=== PATIENT | male | born 1975 | race Caucasian/White ===

== ENCOUNTER → 2017-01-15 | Outpatient (CLI) | payer OTHER ==
[~2017-01-15] MED LIST: ASPI325T17 PO; DIAZ5TAB PO; DOCU-131 PO; LOSA25TA5 PO; OXYC-302 PO; OXYC-307 PO; OXYC10TA47 PO; TRAM50TA2 PO; VARE1TAB21 PO
== END | disposition home or self-care (01) ==
LOC: CFH 09:09
PROVIDERS: ATTEND Orthopaedic Surgery
DX: M48.06 Spinal stenosis, lumbar region (principal); M70.62 Trochanteric bursitis, left hip; Z96.642 Presence of left artificial hip joint; M51.27 Other intervertebral disc displacement, lumbosacral region; M51.46 Schmorl's nodes, lumbar region
CPT/HCPCS: 72148

== ENCOUNTER → 2017-05-06 | Outpatient (CLI) | payer OTHER ==
[2017-05-06 09:37] LABS: BASOPHILS # (AUTO) 0.16 x10^3/uL (0-0.1); BASOPHILS % (AUTO) 2 % (0-1); EOSINOPHILS # (AUTO) 0.29 x10^3/uL (0-0.4); EOSINOPHILS % (AUTO) 4 % (1-7); LYMPHOCYTES # (AUTO) 2.33 x10^3/uL (1-3.4); LYMPHOCYTES % (AUTO) 30 % (22-44); MD NO; MEAN CORPUSCULAR HEMOGLOBIN 29.7 pg (27.5-34.5); MEAN CORPUSCULAR HGB CONC 33.9 g/dL (33.2-36.2); MEAN CORPUSCULAR VOLUME 87.4 fL (81-97); MEAN PLATELET VOLUME 8.7 fL (7.4-10.4); MONOCYTES # (AUTO) 0.42 x10^3/uL (0.2-0.8); MONOCYTES % (AUTO) 5 % (2-9); NEUTROPHILS # (AUTO) 4.55 x10^3/uL (1.8-6.8); NEUTROPHILS % (AUTO) 59 % (42-75); PLATELET COUNT 185 x10^3/uL (130-400); RED BLOOD COUNT 5.15 x10^6/uL (4.38-5.82); RED CELL DISTRIBUTION WIDTH 13.9 % (9.4-14.8)
[2017-05-06 09:52] LABS: ANION GAP 5 mmol/L (5-15); CALCIUM 8.7 mg/dL (8.5-10.1); CHLORIDE 106 mmol/L (98-107)
[2017-05-06 10:05] LABS: ALANINE AMINOTRANSFERASE 23 U/L (12-78); ALKALINE PHOSPHATASE 102 U/L (45-117); BILIRUBIN,TOTAL 0.3 mg/dL (0.2-1.0); CHOL/HDL RATIO 4.1; CHOLESTEROL, TOTAL 145 mg/dL (140-239); CREATININE 0.96 mg/dL (0.7-1.3); HDL CHOL % 24 % (26-37); HDL CHOLESTEROL (DIRECT) 35 mg/dL (40-60); LDL CHOLESTEROL,CALCULATED 46 mg/dL (54-169); LDL/HDL RATIO 1.3 (0.5-3.0); PSA OPT SCREEN 0.24 ng/mL (0.00-4.00); TOTAL PROTEIN 7.5 g/dL (6.4-8.2); TRIGLYCERIDES 318 mg/dL (50-200); VLDL CHOLESTEROL 64 mg/dL (0-25)
== END | disposition home or self-care (01) ==
LOC: LAB 09:21
PROVIDERS: ATTEND Physician Assistant
DX: Z13.220 Encounter for screening for lipoid disorders (principal); Z12.11 Encounter for screening for malignant neoplasm of colon; M87.052 Idiopathic aseptic necrosis of left femur; M25.552 Pain in left hip; F17.200 Nicotine dependence, unspecified, uncomplicated; R03.0 Elevated blood-pressure reading, without diagnosis of hypertension; E78.5 Hyperlipidemia, unspecified; L98.9 Disorder of the skin and subcutaneous tissue, unspecified; N52.9 Male erectile dysfunction, unspecified; M54.5 Low back pain; Z12.5 Encounter for screening for malignant neoplasm of prostate
CPT/HCPCS: 36415; 80053; 80061; 82306; 84153; 84402; 84403; 84443; 85025; G0103

== ENCOUNTER 2017-06-01 16:28 | Day surgery (SDC) | payer OTHER ==
[~2017-06-01] VITALS: Ht 182.9 cm; Wt 102.1 kg
[2017-06-01 16:45] VITALS: BP 144/95
[2017-06-01] MEDS ORDERED: SODIUM CHLORIDE 0.9% 1,000 ML IV ONE (17:04)
[2017-06-01 17:25] LABS: MICROSCOPIC NOT IND
[2017-06-01] MEDS ORDERED: ONDANSETRON 2MG/ML, 2ML IVPush ONE (17:30)
[2017-06-01] MEDS ORDERED: SODIUM CHLORIDE FLUSH 10ML SYR IVF ONE (17:30)
[2017-06-01] MEDS ORDERED: KETOROLAC 30 MG/1 ML IVPush ONE (17:30)
[2017-06-01] MEDS ORDERED: MORPHINE SULFATE 4 MG/ML, 1ML IVPush PRN ×2 (17:30→22:30)
[2017-06-01 17:33] LABS: CULTURE INDICATED? NO
[2017-06-01 18:11] LABS: BASOPHILS # (AUTO) 0.08 x10^3/uL (0-0.1); BASOPHILS % (AUTO) 1 % (0-1); EOSINOPHILS % (AUTO) 1 % (1-7); LYMPHOCYTES # (AUTO) 2.14 x10^3/uL (1-3.4); LYMPHOCYTES % (AUTO) 14 % (22-44); MD NO; MEAN CORPUSCULAR HEMOGLOBIN 29.4 pg (27.5-34.5); MEAN CORPUSCULAR HGB CONC 32.9 g/dL (33.2-36.2); MEAN CORPUSCULAR VOLUME 89.4 fL (81-97); MEAN PLATELET VOLUME 9.2 fL (7.4-10.4); MONOCYTES # (AUTO) 0.83 x10^3/uL (0.2-0.8); MONOCYTES % (AUTO) 5 % (2-9); NEUTROPHILS # (AUTO) 12.22 x10^3/uL (1.8-6.8); NEUTROPHILS % (AUTO) 80 % (42-75); PLATELET COUNT 214 x10^3/uL (130-400); RED BLOOD COUNT 5.34 x10^6/uL (4.38-5.82); RED CELL DISTRIBUTION WIDTH 13.9 % (9.4-14.8)
[2017-06-01 18:23] LABS: ALANINE AMINOTRANSFERASE 34 U/L (12-78); ALBUMIN 4.2 g/dL (3.4-5.0); ANION GAP 5 mmol/L (5-15); CALCIUM 9.1 mg/dL (8.5-10.1); CHLORIDE 107 mmol/L (98-107); CREATININE 0.91 mg/dL (0.7-1.3)
[2017-06-01 18:24] LABS: ALKALINE PHOSPHATASE 103 U/L (45-117); BILIRUBIN,TOTAL 0.4 mg/dL (0.2-1.0); TOTAL PROTEIN 7.6 g/dL (6.4-8.2)
[2017-06-01] MEDS ORDERED: KETOROLAC 30 MG/1 ML ONE (18:41)
[2017-06-01] MEDS ORDERED: ONDANSETRON 2MG/ML, 2ML ONE ×2 (18:41→19:40)
[2017-06-01] MEDS ORDERED: MORPHINE SULFATE 4 MG/ML, 1ML ONE (18:41)
[2017-06-01] MEDS ORDERED: CEFOTETAN PMX 1GM/50ML 50 ML IV ONE (19:00)
[2017-06-01] MEDS ORDERED: CEFOTETAN PMX 1GM/50ML 50 ML ONE (19:09)
[2017-06-01] MEDS ORDERED: FENTANYL PF 250 MCG/5ML ONE (19:18)
[2017-06-01] MEDS ORDERED: MIDAZOLAM 1 MG/ML, 2ML ONE (19:18)
[2017-06-01] MEDS ORDERED: SUCCINYLCHOLINE 20 MG/ML, 10ML ONE (19:24)
[2017-06-01] MEDS ORDERED: PROPOFOL 10 MG/ML, 20ML ONE (19:24)
[2017-06-01] MEDS ORDERED: LIDOCAINE 4%, 4 ML SYR/CANN TP ONE ×2 (19:24→19:40)
[2017-06-01] MEDS ORDERED: EPINEPHRINE 1 MG/ML, 1ML ONE (19:25)
[2017-06-01] MEDS ORDERED: BUPIVACAINE/PF 0.5% ONE (19:25)
[2017-06-01] MEDS ORDERED: CEFOTETAN 2 GM ONE (19:40)
[2017-06-01] MEDS ORDERED: ROCURONIUM 10 MG/ML,10ML ONE (19:40)
[2017-06-01] MEDS ORDERED: DEXAMETHASONE 4 MG/ML, 1ML ONE (19:40)
[2017-06-01] MEDS ORDERED: ALBUTEROL HFA 90 MCG/SPRAY ONE (19:52)
[2017-06-01] MEDS ORDERED: OXYcodone 5 MG/5 ML ORAL.SOL UDC PO PRN (20:30)
[2017-06-01] MEDS ORDERED: ACETAMINOPHEN 325 MG TABLET PO PRN (20:30)
[2017-06-01] MEDS ORDERED: LABETALOL 5MG/ML, 20ML IV PRN (20:30)
[2017-06-01] MEDS ORDERED: HYDROmorphone 1 MG/ML, 1ML IV PRN (20:30)
[2017-06-01] MEDS ORDERED: FENTANYL PF 100 MCG/2ML IV PRN (20:30)
[2017-06-01] MEDS ORDERED: HYDROcodone/APAP 7.5-325MG/15ML UDC PO PRN (20:30)
[2017-06-01] MEDS ORDERED: ALBUTEROL/IPRATROPIUM 2.5MG/0.5MG, 3 ML NPPB PRN (20:30)
[2017-06-01] MEDS ORDERED: ONDANSETRON 2MG/ML, 2ML IVPush PRN ×2 (20:30→22:30)
[2017-06-01] MEDS ORDERED: hydrALAzine 20 MG/ML, 1ML IV PRN (20:30)
[2017-06-01] MEDS ORDERED: OXYcodone 5 MG/5 ML ORAL.SOL UDC ONE (20:32)
[2017-06-01] MEDS ORDERED: FENTANYL PF 100 MCG/2ML ONE (20:32)
[2017-06-01] MEDS ORDERED: ACETAMINOPHEN 650 MG/20.3 ML UDC ONE (20:32)
[2017-06-01] MEDS ORDERED: CEPH-368 PO (21:53)
[2017-06-01] MEDS ORDERED: OXYC-302 PO (21:53)
[2017-06-01] MEDS ORDERED: LACTATED RINGERS 1,000 ML IV SCH (22:30)
[2017-06-01] MEDS ORDERED: OXYcodone/APAP 5/325MG TABLET PO PRN (22:30)
== END 2017-06-01 22:43 ==
LOC: ED 18:57 → SDC 18:58 → ED 21:45 → 4NOR 21:45 → SDC 22:43 → ED 22:43
PROVIDERS: ATTEND Emergency Medicine
DX: K35.3 Acute appendicitis with localized peritonitis (principal); I10 Essential (primary) hypertension; J44.9 Chronic obstructive pulmonary disease, unspecified; E66.9 Obesity, unspecified; Z68.30 Body mass index [BMI] 30.0-30.9, adult; F17.210 Nicotine dependence, cigarettes, uncomplicated; Z96.649 Presence of unspecified artificial hip joint
CPT/HCPCS: 36415; 44970; 74176; 80053; 81003; 85025; 88304; 96361; 96374; 96375; 99285; J0171; J0330; J1100; J1885; J2250; J2405; J2704; J3010; J3490; J7030; S0074

== ENCOUNTER → 2017-10-07 | Outpatient (CLI) | payer OTHER ==
[~2017-10-07] MED LIST changes: +CEPH-368 PO; +GADOBUTROL 10 MMOL/10 ML VIAL ONE
== END | disposition home or self-care (01) ==
LOC: CFH 08:56
PROVIDERS: ATTEND Physician Assistant
DX: R90.82 White matter disease, unspecified (principal); Q28.3 Other malformations of cerebral vessels; M87.052 Idiopathic aseptic necrosis of left femur; M25.552 Pain in left hip; R03.0 Elevated blood-pressure reading, without diagnosis of hypertension; E78.5 Hyperlipidemia, unspecified; L98.9 Disorder of the skin and subcutaneous tissue, unspecified; N52.9 Male erectile dysfunction, unspecified; M54.5 Low back pain; E55.9 Vitamin D deficiency, unspecified; M79.673 Pain in unspecified foot; K42.9 Umbilical hernia without obstruction or gangrene
CPT/HCPCS: 70553; A9585

== ENCOUNTER 2017-12-01 17:33 | Emergency (ER) | payer OTHER ==
[~2017-12-01] VITALS: Ht 182.9 cm; Wt 101.0 kg
[~2017-12-01 17:33] MED LIST changes: -GADOBUTROL 10 MMOL/10 ML VIAL ONE
[2017-12-01] MEDS ORDERED: ASPIRIN 81 MG TABLET CHEW PO ONE (18:00)
[2017-12-01 18:20] LABS: BASOPHILS # (AUTO) 0.05 x10^3/uL (0-0.1); BASOPHILS % (AUTO) 1 % (0-1); EOSINOPHILS % (AUTO) 3 % (1-7); LYMPHOCYTES # (AUTO) 2.95 x10^3/uL (1-3.4); LYMPHOCYTES % (AUTO) 33 % (22-44); MD NO; MEAN CORPUSCULAR HEMOGLOBIN 30.2 pg (27.5-34.5); MEAN CORPUSCULAR HGB CONC 34.3 g/dL (33.2-36.2); MEAN CORPUSCULAR VOLUME 87.8 fL (81-97); MEAN PLATELET VOLUME 8.8 fL (7.4-10.4); MONOCYTES # (AUTO) 0.49 x10^3/uL (0.2-0.8); MONOCYTES % (AUTO) 5 % (2-9); NEUTROPHILS # (AUTO) 5.28 x10^3/uL (1.8-6.8); NEUTROPHILS % (AUTO) 58 % (42-75); PLATELET COUNT 185 x10^3/uL (130-400); RED BLOOD COUNT 5.44 x10^6/uL (4.38-5.82); RED CELL DISTRIBUTION WIDTH 13.5 % (9.4-14.8)
[2017-12-01 18:29] LABS: ALANINE AMINOTRANSFERASE 25 U/L (12-78); ALBUMIN 4.1 g/dL (3.4-5.0); ANION GAP 6 mmol/L (5-15); CALCIUM 8.8 mg/dL (8.5-10.1); CHLORIDE 107 mmol/L (98-107); CREATININE 0.93 mg/dL (0.7-1.3)
[2017-12-01 18:34] LABS: ALKALINE PHOSPHATASE 114 U/L (45-117); BILIRUBIN,TOTAL 0.5 mg/dL (0.2-1.0); TROPONIN I < 0.015 ng/mL (0.000-0.045)
[2017-12-01] MEDS ORDERED: ASPIRIN 81 MG TABLET CHEW ONE (18:35)
[2017-12-01 19:35] VITALS: BP 139/83
== END 2017-12-01 19:37 | disposition home or self-care (01) ==
LOC: ED 19:31
DX: R07.89 Other chest pain (principal); R06.02 Shortness of breath; M19.90 Unspecified osteoarthritis, unspecified site; F17.200 Nicotine dependence, unspecified, uncomplicated
CPT/HCPCS: 36415; 71045; 80053; 84484; 85025; 93005; 99285

== ENCOUNTER 2018-03-20 17:38 | Emergency (ER) | payer OTHER ==
[~2018-03-20] VITALS: Ht 180.3 cm; Wt 103.0 kg
[~2018-03-20 17:38] MED LIST changes: -LOSA25TA5 PO; +LOSA25TA6 PO
[2018-03-20] MEDS ORDERED: ACETAMINOPHEN 500 MG TABLET ONE (19:11)
[2018-03-20 19:15] VITALS: BP 146/80
[2018-03-20] MEDS ORDERED: ACETAMINOPHEN 500 MG TABLET PO ONE (19:30)
== END 2018-03-20 19:17 | disposition home or self-care (01) ==
LOC: ED 19:00
DX: M25.551 Pain in right hip (principal); M54.9 Dorsalgia, unspecified; G89.29 Other chronic pain; M19.90 Unspecified osteoarthritis, unspecified site
CPT/HCPCS: 99283

== ENCOUNTER 2019-10-13 07:17 | Outpatient (CLI) | payer OTHER ==
[~2019-10-13 07:17] MED LIST changes: +LOSA25TA25 PO; -LOSA25TA6 PO
[2019-10-13 07:37] LABS: BASOPHILS # (AUTO) 0.02 x10^3/uL (0-0.1); BASOPHILS % (AUTO) 0 % (0-1); EOSINOPHILS # (AUTO) 0.28 x10^3/uL (0-0.4); EOSINOPHILS % (AUTO) 4 % (1-7); LYMPHOCYTES # (AUTO) 2.52 x10^3/uL (1-3.4); LYMPHOCYTES % (AUTO) 37 % (22-44); MD NO; MEAN CORPUSCULAR HGB CONC 33.6 g/dL (33.2-36.2); MEAN CORPUSCULAR VOLUME 89.4 fL (81-97); MEAN PLATELET VOLUME 8.7 fL (7.4-10.4); MONOCYTES # (AUTO) 0.36 x10^3/uL (0.2-0.8); MONOCYTES % (AUTO) 5 % (2-9); NEUTROPHILS # (AUTO) 3.61 x10^3/uL (1.8-6.8); NEUTROPHILS % (AUTO) 53 % (42-75); PLATELET COUNT 168 x10^3/uL (130-400); RED CELL DISTRIBUTION WIDTH 14.1 % (9.4-14.8)
[2019-10-13 07:49] LABS: ALBUMIN 3.8 g/dL (3.4-5.0); ANION GAP 4 mmol/L (5-15); CALCIUM 8.8 mg/dL (8.5-10.1); CHLORIDE 108 mmol/L (98-107)
[2019-10-13 07:58] LABS: ALANINE AMINOTRANSFERASE 16 U/L (12-78); ALKALINE PHOSPHATASE 94 U/L (45-117); BILIRUBIN,TOTAL 0.4 mg/dL (0.2-1.0); CHOL/HDL RATIO 3.9; CHOLESTEROL, TOTAL 154 mg/dL (140-239); CREATININE 1.01 mg/dL (0.7-1.3); FREE T4 (FREE THYROXINE) 0.98 ng/dL (0.76-1.46); HDL CHOL % 25 % (26-37); HDL CHOLESTEROL (DIRECT) 39 mg/dL (40-60); LDL CHOLESTEROL,CALCULATED 86 mg/dL (54-169); LDL/HDL RATIO 2.2 (0.5-3.0); TOTAL PROTEIN 7.4 g/dL (6.4-8.2); TRIGLYCERIDES 145 mg/dL (50-200); VLDL CHOLESTEROL 29 mg/dL (0-25)
== END 2019-10-13 23:59 | disposition home or self-care (01) ==
LOC: LAB 07:17
PROVIDERS: ATTEND Family Medicine
DX: Z13.220 Encounter for screening for lipoid disorders (principal); R68.89 Other general symptoms and signs; R06.83 Snoring; R05 Cough; M54.42 Lumbago with sciatica, left side; M25.551 Pain in right hip; K42.9 Umbilical hernia without obstruction or gangrene; F17.209 Nicotine dependence, unspecified, with unspecified nicotine-induced disorders
CPT/HCPCS: 36415; 80053; 80061; 84439; 84443; 85025

== ENCOUNTER 2020-11-23 16:04 | Emergency (ER) | payer SELFPAY ==
[~2020-11-23] VITALS: Ht 182.9 cm; Wt 94.5 kg
[~2020-11-23 16:04] MED LIST changes: -OXYC-302 PO; -OXYC-307 PO; +OXYC-380 PO; +OXYC1TAB14 PO
[2020-11-23 16:11] VITALS: BP 135/87
[2020-11-23] MEDS ORDERED: HYDROcodone/APAP 5/325 TABLET ONE (16:56)
[2020-11-23] MEDS ORDERED: ONDANSETRON ODT 4 MG ONE (16:56)
[2020-11-23] MEDS ORDERED: CYCLOBENZAPRINE 10 MG TABLET ONE (16:56)
[2020-11-23] MEDS ORDERED: HYDROcodone/APAP 5/325 TABLET PO ONE (17:00)
[2020-11-23] MEDS ORDERED: ONDANSETRON ODT 4 MG PO ONE (17:00)
[2020-11-23] MEDS ORDERED: CYCLOBENZAPRINE 10 MG TABLET PO ONE (17:00)
== END 2020-11-23 16:41 | disposition home or self-care (01) ==
LOC: ED 16:35
DX: M54.42 Lumbago with sciatica, left side (principal)
CPT/HCPCS: 99284; J7512; Q0162